=== PATIENT | male | born 1945 | race Caucasian/White ===

== ENCOUNTER 2021-01-14 15:08 | Emergency (ER) | payer MEDICARE ==
[~2021-01-14] VITALS: Ht 167.6 cm; Wt 88.0 kg
[2021-01-14] MEDS ORDERED: ZPAK PO (17:23)
[2021-01-14] MEDS ORDERED: TESSALON PERLE100 MG PO (17:23)
[2021-01-14 17:44] VITALS: BP 135/63
== END 2021-01-14 17:50 | disposition home or self-care (01) ==
LOC: ED 15:08
DX: J40 Bronchitis, not specified as acute or chronic (principal); E11.9 Type 2 diabetes mellitus without complications; E78.5 Hyperlipidemia, unspecified; Z20.822 Contact with and (suspected) exposure to COVID-19

== ENCOUNTER 2021-01-17 15:17 | Emergency (ER) | payer MEDICARE ==
[~2021-01-17] VITALS: Ht 167.6 cm; Wt 88.6 kg
[~2021-01-17 15:17] MED LIST: TESSALON PERLE100 MG PO; ZPAK PO
[2021-01-17 16:29] LABS: HEMATOCRIT 40.4 % (39.0-50.0); HEMOGLOBIN 13.5 g/dl (14.0-18.0); IMMATURE GRANULOCYTES 0.9 % (0.0-5.0); MEAN CELL VOLUME 89.6 fL CALC (80.0-100.0); MEAN CORPUSCULAR HGB 29.9 pG CALC (26.0-32.0); MEAN CORPUSCULAR HGB CONC 33.4 g/dL CAL (32.0-36.0); NEUT# 7.94 thou/uL (1.82-7.42); RED BLOOD COUNT 4.51 mill/uL (4.70-6.10); RED CELL DISTRI WIDTH 12.1 % (11.5-15.5)
[2021-01-17 16:41] LABS: ALBUMIN 3.9 g/dL (3.2-5.0); ALKALINE PHOSPHATASE 74 u/l (38-126); ANION GAP 11 (6-22 (CALC)); BILIRUBIN, TOTAL 0.6 mg/dL (0.0-1.4); BUN 14 mg/dL (8-23); BUN/CREATININE RATIO 14 (12-20 (CALC)); CARBON DIOXIDE 31 mmol/l (22-30); CHLORIDE 101 mmol/l (95-108); GFR > 60 ML/MIN (>=60 (CALC)); GFR FOR AFR.AMER. > 60 ML/MIN (>=60 (CALC)); POTASSIUM 4.2 mmol/l (3.5-5.1); SGOT/AST 32 u/l (19-48); SODIUM 139 mmol/l (137-146); TOTAL PROTEIN 7.8 g/dL (6.3-8.2)
[2021-01-17 16:47] LABS: D-DIMER 1.37 mg/L (0.19-0.60)
[2021-01-17 16:52] LABS: ACT PARTIAL THROMBO TIME 29.9 SECONDS (20.0-32.5)
[2021-01-17 16:53] LABS: MYOGLOBIN 46 ng/mL (0 - 121)
[2021-01-17] MEDS ORDERED: LEVAQUIN750 M1 PO (18:53)
[2021-01-17 19:00] VITALS: BP 168/79
== END 2021-01-17 19:14 | disposition home or self-care (01) ==
LOC: ED 15:17
PROVIDERS: Family Medicine
DX: J40 Bronchitis, not specified as acute or chronic (principal); E11.9 Type 2 diabetes mellitus without complications; E78.5 Hyperlipidemia, unspecified
CPT/HCPCS: Q9967